=== PATIENT | male | born 1990 | race Caucasian/White ===

== ENCOUNTER 2023-04-12 18:11 | Emergency (ER) | payer OTHER, SELFPAY ==
[2023-04-12 18:22] VITALS: BP 124/64; PULSE 71; RESP 20; TEMP 36.5; O2SAT 98
--- NOTE | 2023-04-12 18:29 | ED.BACK ---
HPI - Back Pain/Injury General Chief Complaint: Back Pain/Injury Stated Complaint: WC/lower spine pain Time Seen by Provider: 04/12/23 18:32 Source: patient, RN notes reviewed and old records reviewed Mode of arrival: ambulatory Limitations: no limitations History of Present Illness HPI Narrative: 32 [facility] male [facility] with complaints of filling a mop bucket today with water and then when he bent over to pick it up he had severe pain to his lower back which occurred at 0745. Patient reports that he has had spinal injections in the past due to back issues, he was found to have a cyst in his spine. Patient states that he left work and went home were he rested and around noon took steroid and also [place] which had been prescribed by his PCP in the past for him if he has back pain. Patient reports that he has some pain which radiates down the back of his leg also to his knees and has some intermittent tingling in his legs. Patient denies any difficulty passing his urine or stool and has no saddle paraesthesia.Patient reports that last back injections 3 years ago and has appointment for injection in 1 month. MD elicited complaint: back pain Pertinent past history: prior back pain Onset (ago): hour(s) (0745 this morning) Pain scale (0-10): 8 Similar Symptoms Previously: Yes Location: lumbar spine Radiation: left upper leg (posteriorly to knee) and right upper leg (posteriorly to knee) Exacerbating factors: movement and walking Treatments prior to arrival: prescription analgesics and other (steroid) Related Data Home Medications Medication Instructions Recorded Confirmed hydrocodone 5 mg-acetaminophen 325 1 - 2 tablet PO DIRECTED 04/12/23 04/12/23 mg tablet Allergies Allergy/AdvReac Type Severity Reaction Status Date / Time No Known Allergies Allergy Verified 04/12/23 18:32 Review of Systems Review of Systems: CONSTITUTIONAL: Denies fever, chills, or sweats. CARDIOVASCULAR: Denies chest pain, palpitations, or edema. RESPIRATORY: Denies cough or dyspnea. GASTROINTESTINAL: Denies abdominal pain, nausea, vomiting, or diarrhea. GENITOURINARY: Denies dysuria or hematuria. SKIN: Denies rash or itching. MUSCULOSKELETAL: Reports lumbar back pain radiating down posterior legs to knees. or myalgia. NEUROLOGIC: Denies headache, numbness, or weakness. All systems reviewed & are unremarkable except as noted in HPI and below PMFSH Past Medical History Medical History (Updated 04/13/23 @ 15:56 by Lazara Monk NP) Spinal arachnoid cyst Social History Social History (Updated 04/13/23 @ 15:44 by Lazara Monk NP) Smoking status: Never smoker Alcohol intake: current Alcohol use details: social Substance use type: does not use Living arrangements: with family Gender identity (if verbalized by the patient): Male Comments At time of signature, agree with nursing past medical, surgical, social and family history. There is no relevant family history pertinent to the presenting complaint Exam Narrative: GENERAL: Well-appearing, well-nourished, and in no acute distress. HEAD: Normocephalic, atraumatic. EYES: PERRLA and EOMI. NECK: Supple. No lymphadenopathy. CHEST: Clear to auscultation. No respiratory distress. SAO2 98% on room air HEART: Regular rate and rhythm. Distal pulses palpable and equal, cap refill <3 seconds ABDOMEN: Soft, nontender, nondistended, normal active bowel sounds, no palpable or pulsatile masses. No CVA tenderness MUSCULOSKELETAL: Normal range of motion and strength in all extremities; 5/5 strength with hip flexion and extension, dorsiflexion and extension, knee flexion and extension, plantar flexion and extension. Normal sensation in dermatomal distributions with sensitivity to light touch and pain. lumbar midline back tenderness to palpation. No paraspinal tenderness. Transfers from lying to sitting to standing with discomfort. Pain radiates to poste
[2023-04-12] MEDS: KETOROLAC (*BKC) 60 MG/2 ML VIAL IM (19:04)
== END 2023-04-12 19:15 | disposition home or self-care (01) ==
PROVIDERS: Emergency Provider Registered Nurse; PCP Family Medicine
DX: M54.50 Low back pain, unspecified (principal)
CPT/HCPCS: 96372; 99213; G0463; J1885